=== PATIENT | male | born 1990 | race Caucasian/White ===

== ENCOUNTER 2019-06-13 18:45 | Emergency (ER) | payer MEDICAID ==
[~2019-06-13] VITALS: Ht 175.3 cm; Wt 59.1 kg
[~2019-06-13 18:45] MED LIST: NO HOME MEDS
[2019-06-13 18:47] VITALS: BP 113/68
== END 2019-06-13 19:12 ==
LOC: ER 18:45
DX: Z02.89 Encounter for other administrative examinations (principal); R45.1 Restlessness and agitation; F17.200 Nicotine dependence, unspecified, uncomplicated; V49.88XA Car occupant (driver) (passenger) injured in other specified transport accidents, initial encounter; Y93.89 Activity, other specified; Y92.413 State road as the place of occurrence of the external cause; Y99.9 Unspecified external cause status
CPT/HCPCS: 99283

== ENCOUNTER 2020-01-14 15:45 | Inpatient (IN) | payer MEDICAID ==
[~2020-01-14] VITALS: Ht 175.3 cm; Wt 57.9 kg
[2020-01-14] MEDS ORDERED: ondansetron/PF 4mg/2ml inj IV ONE (16:15)
[2020-01-14] MEDS ORDERED: normal saline 1000ML IV soln IVB ONE ×2 (16:15→17:50)
[2020-01-14] MEDS: morphine 2 MG/ML inj. syringe IV PRN ×2 (16:36→19:39)
--- NOTE | 2020-01-14 16:40 | NUR ---
PT IS RECEIVING 1ST LITER NS BOLUS, PT C/O EPIGASTRIC AND THROAT PAIN, +N/V SINCE TUESDAY AT 0800, NO FEVER/CHILLS, NO RECENT TRAVEL, NO DYSURIA,
--- NOTE | 2020-01-14 16:45 | NUR ---
FLU AND THROAT SWAB SENT TO LAB
[2020-01-14 16:51] LABS: BASOPHILS % (AUTO) 0.1 % (0-1); EOSINOPHILS % (AUTO) 0 % (0-6); HEMATOCRIT 54.3 % (42.0-52.0); LYMPHOCYTES # (AUTO) 1.1 X10'3 (1.1-4.8); LYMPHOCYTES % (AUTO) 3.5 % (21-51); MEAN CORPUSCULAR HEMOGLOBIN 30.8 PG (27.0-31.0); MEAN CORPUSCULAR VOLUME 88.2 FL (78-98); MEAN PLATELET VOLUME 8.3 FL (7.4-10.4); MONOCYTES # (AUTO) 3.4 X10'3 (0-0.9); MONOCYTES % (AUTO) 11.2 % (2-12); NEUTROPHILS # (AUTO) 26.3 X10'3 (1.8-7.7); NEUTROPHILS % (AUTO) 85.2 % (42-75); PLATELET COUNT 411 X10'3 (140-440); RED BLOOD COUNT 6.15 X10'6 (4.70-6.10); RED CELL DISTRIBUTION WIDTH 12.7 % (11.5-14.5)
[2020-01-14 16:55] LABS: WHITE BLOOD COUNT 30.8 X10'3 (4.5-11.0)
[2020-01-14 17:10] LABS: ALANINE AMINOTRANSFERASE 28 U/L (12-78); ALBUMIN 4.9 G/DL (3.4-5.0); ALBUMIN/GLOBULIN RATIO 1.1 (1.1-1.5); ALKALINE PHOSPHATASE 105 IU/L (46-116); ANION GAP 14 (8-16); ASPARTATE AMINO TRANSFERASE 50 U/L (10-37); BILIRUBIN,TOTAL 1.1 MG/DL (0.1-1.0); BLOOD UREA NITROGEN 53 MG/DL (7-18); CALCIUM 10.3 MG/DL (8.5-10.1); CHLORIDE 83 MMOL/L (99-107); CREATININE 1.96 MG/DL (0.60-1.10); GLUCOSE 132 MG/DL (70-104); LIPASE < 50 U/L (73-393); SODIUM 130 MMOL/L (135-145); TOTAL PROTEIN 9.4 G/DL (6.4-8.2); eGFR 41 ML/MIN
--- NOTE | 2020-01-14 17:11 | NUR ---
2ND LITER NS W/O
[2020-01-14 17:12] LABS: POTASSIUM 2.6 MMOL/L (3.5-5.1); TOTAL CELLS COUNTED 100
[2020-01-14 17:13] LABS: PLATELET ESTIMATE NORMAL; STOMATOCYTES 1+
[2020-01-14 17:40] LABS: MAGNESIUM 2.6 MG/DL (1.5-2.4)
[2020-01-14] MEDS ORDERED: penicillin G benzathine 1.2 million unit/2ml syringe IM ONE (17:50)
[2020-01-14] MEDS ORDERED: diphenhydrAMINE 25mg capsule PO PRN (18:10)
[2020-01-14] MEDS ORDERED: acetaminophen 650mg rectal suppository RC PRN (18:10)
[2020-01-14] MEDS ORDERED: potassium CL 10mEq/100ml bag 100 ML IV PRN (18:10)
[2020-01-14] MEDS ORDERED: HYDROcodone/acetaminophen 10/325mg tab PO PRN (18:10)
[2020-01-14] MEDS ORDERED: morphine 2 MG/ML inj. syringe IV PRN ×2 (18:10)
[2020-01-14] MEDS ORDERED: magnesium 4gm in 100ml NS 100 ML IV PRN (18:10)
[2020-01-14] MEDS ORDERED: HYDROcodone/acetaminophen 5mg/325mg tablet PO PRN (18:10)
[2020-01-14] MEDS ORDERED: mag hydrox/Alum hydrox/simeth 30ml oral suspension PO PRN (18:10)
[2020-01-14] MEDS ORDERED: potassium Cl 20 mEq SR tablet PO PRN ×2 (18:10)
[2020-01-14] MEDS ORDERED: magnesium hydroxide 30ml (MOM) UD suspension PO PRN (18:10)
[2020-01-14] MEDS ORDERED: magnesium 2GM in 50ml NS 50 ML IV PRN (18:10)
[2020-01-14] MEDS ORDERED: acetaminophen 325mg tablet PO PRN ×2 (18:10)
[2020-01-14] MEDS ORDERED: magnesium Cl slow-release 64mg tablet PO PRN (18:10)
[2020-01-14] MEDS ORDERED: metoclopramide 5 mg/ml inj IV PRN (18:10)
[2020-01-14 18:26] LABS: ETHANOL < 0.010 GM/DL (0.0-0.010)
[2020-01-14] MEDS: normal saline 1000ml 1,000 ML IV SCH (19:07)
[2020-01-14] MEDS: CefTRIAXone/D5W-Rocephin 1gm 50 ML IV SCH (19:36)
[2020-01-14] MEDS ORDERED: penicillin G potassium inj 3,000,000 UNIT in normal saline 100ml IV soln 100 ML IV SCH (20:00)
[2020-01-14] MEDS: K and/or MAG REPLACEMENT MC SCH (20:00)
[2020-01-14 20:15] VITALS: BP 118/68
[2020-01-14] MEDS: heparin, porcine 5000 units/ml vial SQ SCH (20:55)
[2020-01-14 21:23] LABS: CLARITY,URINE CLEAR (Clear); COLOR,URINE YELLOW (Yellow); GLUCOSE, URINE NEGATIVE (Neg); KETONES,URINE 15 mg/dl (Neg); LEUKOCYTE ESTERASE ,URINE NEGATIVE (Neg); NITRITES, URINE NEGATIVE (Neg); OCCULT BLOOD,URINE TRACE-INTACT (Neg); PROTEIN,URINE 100 mg/dl (Neg); UROBILINOGEN,URINE 0.2 E.U/dL (0.2-1.0)
[2020-01-14 21:29] LABS: UA COLLECTION TYPE CLN CATCH MIDSTREAM
[2020-01-14 21:31] LABS: BACTERIA,URINE NONE SEEN /HPF (Neg); RBC,URINE 0-2 /HPF (0-2); SQUAMOUS EPITHELIAL CELL,UR NONE SEEN /LPF (FEW); WBC,URINE 0-4 /HPF (0-4)
[2020-01-14 21:40] LABS: URINE AMPHETAMINE SCREEN NEGATIVE (Neg); URINE BARBITUATE SCREEN NEGATIVE (Neg); URINE BENZODIAZEPINES SCREEN NEGATIVE (Neg); URINE CANNABINOID SCREEN POSITIVE (Neg); URINE COCAINE SCREEN NEGATIVE (Neg); URINE METHADONE SCREEN NEGATIVE (Neg); URINE OPIATE SCREEN POSITIVE (Neg); URINE PHENCYCLIDINE SCREEN NEGATIVE (Neg)
[2020-01-14 23:28] VITALS: BP 120/70
[2020-01-15] MEDS: potassium CL 10mEq/100ml bag 100 ML IV PRN ×11 (00:03→22:27)
[2020-01-15] MEDS ORDERED: POTASSIUM BICARB 20meq eff tab 20 MEQ TABLET.EFF PO PRN ×2 (00:37→00:38)
[2020-01-15] MEDS: normal saline 1000ml 1,000 ML IV SCH ×2 (02:07→10:07)
[2020-01-15] MEDS: ondansetron/PF 4mg/2ml inj IV PRN ×2 (03:14→18:51)
[2020-01-15 05:30] LABS: BASOPHILS % (AUTO) 0.1 % (0-1); EOSINOPHILS % (AUTO) 0 % (0-6); HEMATOCRIT 40.3 % (42.0-52.0); HEMOGLOBIN 14.2 g/dl (14.0-17.9); LYMPHOCYTES # (AUTO) 1.3 X10'3 (1.1-4.8); LYMPHOCYTES % (AUTO) 6.2 % (21-51); MEAN CORPUSCULAR HEMOGLOBIN 31.7 PG (27.0-31.0); MEAN CORPUSCULAR HGB CONC 35.3 g/dL (33.0-36.5); MEAN CORPUSCULAR VOLUME 89.9 FL (78-98); MONOCYTES # (AUTO) 2.4 X10'3 (0-0.9); MONOCYTES % (AUTO) 11.8 % (2-12); NEUTROPHILS # (AUTO) 16.7 X10'3 (1.8-7.7); NEUTROPHILS % (AUTO) 81.9 % (42-75); PLATELET COUNT 284 X10'3 (140-440); RED BLOOD COUNT 4.48 X10'6 (4.70-6.10); RED CELL DISTRIBUTION WIDTH 12.5 % (11.5-14.5); WHITE BLOOD COUNT 20.3 X10'3 (4.5-11.0)
[2020-01-15 05:56] LABS: ALANINE AMINOTRANSFERASE 25 U/L (12-78); ALBUMIN 3.3 G/DL (3.4-5.0); ALKALINE PHOSPHATASE 68 IU/L (46-116); ANION GAP 6 (8-16); ASPARTATE AMINO TRANSFERASE 45 U/L (10-37); BILIRUBIN,TOTAL 0.7 MG/DL (0.1-1.0); BLOOD UREA NITROGEN 30 MG/DL (7-18); BUN/CREATININE RATIO 29.7 (5.4-32.0); CALCIUM 8.3 MG/DL (8.5-10.1); CHLORIDE 100 MMOL/L (99-107); CREATININE 1.01 MG/DL (0.60-1.10); GLUCOSE 94 MG/DL (70-104); MAGNESIUM 2.2 MG/DL (1.5-2.4); PHOSPHORUS 2.3 MG/DL (2.3-4.5); POTASSIUM 3.2 MMOL/L (3.5-5.1); SODIUM 137 MMOL/L (135-145); TOTAL CARBON DIOXIDE 30.8 MMOL/L (24-32); TOTAL PROTEIN 6.6 G/DL (6.4-8.2); eGFR 88 ML/MIN
--- NOTE | 2020-01-15 06:21 | NUR ---
Problems reprioritized. Patient report given, questions answered & plan of care reviewed with ALISE Thomas.
--- NOTE | 2020-01-15 06:29 | NUR ---
Patient in room [facility]. I have received report from Amee CARRERO and had the opportunity to ask questions and assume patient care.
[2020-01-15 07:15] VITALS: BP 98/64
[2020-01-15] MEDS: heparin, porcine 5000 units/ml vial SQ SCH ×2 (07:24→20:02)
[2020-01-15] MEDS: CefTRIAXone/D5W-Rocephin 1gm 50 ML IV SCH (07:28)
[2020-01-15] MEDS: K and/or MAG REPLACEMENT MC SCH ×2 (08:00→20:00)
[2020-01-15] MEDS ORDERED: FLU VACC QS2019-20 36MOS UP/PF 60 MCG/0.5 ML SYRINGE IMVAC ONE (10:00)
[2020-01-15 12:57] VITALS: BP 103/58
[2020-01-15] MEDS ORDERED: haloperidol lactate 5mg/ml inj IM PRN (13:05)
[2020-01-15] MEDS ORDERED: LORazepam 1 MG tablet PO PRN (13:05)
[2020-01-15] MEDS ORDERED: haloperidol 5mg tablet PO PRN (13:05)
[2020-01-15] MEDS ORDERED: thiamine inj. 100 MG in normal saline 100ml IV soln 100 ML IV ONE (13:30)
[2020-01-15] MEDS: nicotine 14mg patch - 24hr TD SCH (13:34)
[2020-01-15] MEDS: pantoprazole 40 MG vial IV SCH (13:34)
[2020-01-15] MEDS: dextrose 5%-normal saline 1,000 ML IV SCH ×2 (13:35→22:26)
--- NOTE | 2020-01-15 16:36 | NUR ---
Patient sleeping most of shift. Not wanting to eat , mother present, informed this staff that patient drinks constantly at home drinking a 16oz bottle of vodka/day and several beers, half a pack of cigarettes and weed. dr esparza informed. . Thiamine given per protocol. patient placed on ETOH protocol. Will continue to monitor.
--- NOTE | 2020-01-15 16:50 | NUR ---
Initial: Pt admit with strep throat and sepsis. Per MD note pt clinically getting better however with difficulty swallowing even liquids secondary to sore throat, PRN Lidocaine swish and spit was added to med list and pt started on D5NS at 125 mL/hr. Pt receiving routine Thiamine and Folic acid d/t patient's mother reporting pt drinks alcohol daily. Attempted visit with pt at bedside for protein education and food preferences however pt sleeping and did not wake with verbal cues. Written education and RD contact information left a bedside. Pt currently on regular diet documented to have refused breakfast and lunch today. LBM 01/12. Will continue to follow closely and monitor for appropriate nutrition intervention. Recommendations: 1) Continue regular diet 2) Consider diet change to full liquids if easier to swallow with strep throat 3) Monitor need for ONS 4) Continue routine Thiamine and Folic acid d/t EtOH reports 5) Bowel care PRN 6) Wt per rx Addendum: 01/15/20 at [address] Amended: Links added.
--- NOTE | 2020-01-15 17:58 | NUR ---
repeat K was 3.3. will start replacement again per protocol. Report given to Amee CARRERO
[2020-01-15] MEDS: LIDOcaine Viscous 15ml cup MM PRN (18:51)
[2020-01-15] MEDS: lactobacillus rhamnosus 10,000 MMU CELLS/CAPSULE PO SCH (19:42)
[2020-01-15 20:00] VITALS: BP 113/75
[2020-01-15] MEDS: LORazepam 2 mg/ml vial IV PRN (20:02)
[2020-01-16] VITALS: BP 122/78
[2020-01-16] MEDS: potassium CL 10mEq/100ml bag 100 ML IV PRN (01:14)
[2020-01-16] MEDS: ondansetron/PF 4mg/2ml inj IV PRN (02:30)
[2020-01-16] MEDS: LORazepam 2 mg/ml vial IV PRN (02:30)
[2020-01-16 05:28] LABS: BASOPHILS % (AUTO) 0.2 % (0-1); EOSINOPHILS % (AUTO) 0.1 % (0-6); HEMOGLOBIN 13.4 g/dl (14.0-17.9); LYMPHOCYTES # (AUTO) 1.7 X10'3 (1.1-4.8); LYMPHOCYTES % (AUTO) 14.2 % (21-51); MEAN CORPUSCULAR HEMOGLOBIN 31.8 PG (27.0-31.0); MEAN CORPUSCULAR HGB CONC 35.1 g/dL (33.0-36.5); MEAN CORPUSCULAR VOLUME 90.6 FL (78-98); MONOCYTES # (AUTO) 1.5 X10'3 (0-0.9); MONOCYTES % (AUTO) 12.8 % (2-12); NEUTROPHILS # (AUTO) 8.6 X10'3 (1.8-7.7); NEUTROPHILS % (AUTO) 72.7 % (42-75); PLATELET COUNT 240 X10'3 (140-440); RED BLOOD COUNT 4.19 X10'6 (4.70-6.10); RED CELL DISTRIBUTION WIDTH 12.4 % (11.5-14.5); WHITE BLOOD COUNT 11.8 X10'3 (4.5-11.0)
[2020-01-16 05:38] LABS: ALANINE AMINOTRANSFERASE 23 U/L (12-78); ALBUMIN 2.9 G/DL (3.4-5.0); ALBUMIN/GLOBULIN RATIO 0.9 (1.1-1.5); ALKALINE PHOSPHATASE 50 IU/L (46-116); ANION GAP 6 (8-16); ASPARTATE AMINO TRANSFERASE 33 U/L (10-37); BILIRUBIN,TOTAL 0.6 MG/DL (0.1-1.0); BLOOD UREA NITROGEN 15 MG/DL (7-18); BUN/CREATININE RATIO 18.5 (5.4-32.0); CALCIUM 8.2 MG/DL (8.5-10.1); CHLORIDE 106 MMOL/L (99-107); CREATININE 0.81 MG/DL (0.60-1.10); GLUCOSE 119 MG/DL (70-104); PHOSPHORUS 2.1 MG/DL (2.3-4.5); POTASSIUM 3.6 MMOL/L (3.5-5.1); SODIUM 138 MMOL/L (135-145); eGFR > 90 ML/MIN
[2020-01-16] MEDS: dextrose 5%-normal saline 1,000 ML IV SCH ×2 (05:42→13:05)
--- NOTE | 2020-01-16 06:20 | NUR ---
Problems reprioritized. Patient report given, questions answered & plan of care reviewed with ALISE España.
[2020-01-16 07:23] VITALS: BP 103/56
[2020-01-16] MEDS: pantoprazole 40 MG vial IV SCH (07:43)
[2020-01-16] MEDS: CefTRIAXone/D5W-Rocephin 1gm 50 ML IV SCH (07:43)
[2020-01-16] MEDS: heparin, porcine 5000 units/ml vial SQ SCH (07:43)
[2020-01-16] MEDS: nicotine 14mg patch - 24hr TD SCH (07:43)
[2020-01-16] MEDS ORDERED: thiamine 100mg tablet PO SCH (08:00)
[2020-01-16] MEDS: lactobacillus rhamnosus 10,000 MMU CELLS/CAPSULE PO SCH (08:00)
[2020-01-16] MEDS: K and/or MAG REPLACEMENT MC SCH (08:00)
[2020-01-16] MEDS ORDERED: folic acid 1mg tablet PO SCH (08:00)
[2020-01-16] MEDS ORDERED: LACT1CAP26 PO (10:33)
[2020-01-16] MEDS ORDERED: THIA50TA10 PO (10:33)
[2020-01-16] MEDS ORDERED: FOLI0.4T2 PO (10:33)
[2020-01-16] MEDS ORDERED: CEFD300C3 PO (10:33)
[2020-01-16] MEDS ORDERED: LIDO20SO16 MM (10:33)
--- NOTE | 2020-01-16 11:47 | NUR ---
Went in to discharge patient from primary nurse while she is on her lunch break. Patient mother was stating concern for the patient related to him throwing up and being unable to keep anything down. Patient was informed that we can discuss this with the MD and primary nurse and try to figure out the plan.
[2020-01-16] MEDS: LIDOcaine Viscous 15ml cup MM PRN (12:19)
[2020-01-16 12:39] VITALS: BP 112/83
--- NOTE | 2020-01-16 15:19 | NUR ---
Discharge instructions given to patient and he states he understands. IV was removed with canula intact. Pt was safely wheeled down to private vehicle where mom will take him home.
[2020-01-17] MEDS ORDERED: pantoprazole 40mg Tablet.DR PO SCH (08:00)
== END 2020-01-16 15:28 | disposition home or self-care (01) | DRG 113 ==
LOC: ER 15:45 → ED HOLD 18:25 → SUR 3N 20:25
PROVIDERS: ADMIT Family Medicine; ATTEND Family Medicine
DX: J02.0 Streptococcal pharyngitis (principal); N17.9 Acute kidney failure, unspecified; D75.1 Secondary polycythemia; E83.52 Hypercalcemia; E86.0 Dehydration; J02.9 Acute pharyngitis, unspecified; D72.829 Elevated white blood cell count, unspecified; K52.9 Noninfective gastroenteritis and colitis, unspecified; E87.6 Hypokalemia; F17.200 Nicotine dependence, unspecified, uncomplicated; F10.10 Alcohol abuse, uncomplicated; Y90.9 Presence of alcohol in blood, level not specified; Z83.3 Family history of diabetes mellitus; Z71.6 Tobacco abuse counseling
CPT/HCPCS: 36415; 71045; 80053; 80305; 80320; 81001; 82948; 83036; 83605; 83690; 83735; 84100; 84132; 85025; 87040; 87081; 87502; 87503; 87880; 96372; 96374; 99285; C9113; G0378; J0561; J0696; J1644; J2060; J2270; J2405; J3411; J3480; J7030; J7042; Q2037

== ENCOUNTER 2023-07-11 20:44 | Emergency (ER) | payer MEDICAID ==
[~2023-07-11] VITALS: Ht 175.3 cm; Wt 54.4 kg
[~2023-07-11 20:44] MED LIST changes: +LACT1CAP26 PO; +LIDO20SO16 MM; -NO HOME MEDS; +THIA50TA10 PO
[2023-07-11 20:46] VITALS: TEMP 98.4
[2023-07-11 23:22] LABS: HEMATOCRIT 45.9 % (42.0-52.0); HEMOGLOBIN 15.2 g/dl (14.0-17.9); MEAN CORPUSCULAR HEMOGLOBIN 30.9 PG (27.0-31.0); WHITE BLOOD COUNT 11.4 X10'3 (4.5-11.0)
[2023-07-11 23:23] LABS: BASOPHILS % (AUTO) 0.3 % (0-1); EOSINOPHILS # (AUTO) 0.1 X10'3 (0-0.9); EOSINOPHILS % (AUTO) 0.5 % (0-6); LYMPHOCYTES # (AUTO) 2.2 X10'3 (1.1-4.8); LYMPHOCYTES % (AUTO) 19.4 % (21-51); MEAN CORPUSCULAR HGB CONC 33.1 g/dL (33.0-36.5); MEAN CORPUSCULAR VOLUME 93.4 FL (78-98); MEAN PLATELET VOLUME 7.3 FL (7.4-10.4); MONOCYTES % (AUTO) 8.4 % (2-12); NEUTROPHILS # (AUTO) 8.2 X10'3 (1.8-7.7); NEUTROPHILS % (AUTO) 71.4 % (42-75); PLATELET COUNT 327 X10'3 (140-440); RED BLOOD COUNT 4.91 X10'6 (4.70-6.10); RED CELL DISTRIBUTION WIDTH 12.8 % (11.5-14.5)
[2023-07-11] MEDS ORDERED: NO HOME MEDS (23:26)
[2023-07-11 23:31] LABS: ALANINE AMINOTRANSFERASE 23 U/L (12-78); ALBUMIN 3.9 G/DL (3.4-5.0); ALBUMIN/GLOBULIN RATIO 1.3 (1.1-1.5); ALKALINE PHOSPHATASE 85 IU/L (46-116); ANION GAP 5 (8-16); ASPARTATE AMINO TRANSFERASE 17 U/L (10-37); BILIRUBIN,TOTAL 0.2 MG/DL (0.1-1.0); BLOOD UREA NITROGEN 6 MG/DL (7-18); BUN/CREATININE RATIO 6.5 (10.0-20.0); CHLORIDE 104 MMOL/L (99-107); CREATININE 0.93 MG/DL (0.60-1.10); GLUCOSE 102 MG/DL (70-104); POTASSIUM 3.3 MMOL/L (3.5-5.1); SODIUM 140 MMOL/L (135-145); TOTAL CARBON DIOXIDE 31.5 MMOL/L (24-32); TOTAL PROTEIN 6.8 G/DL (6.4-8.2); eCRCL 89 ML/MIN; eGFR > 90 ML/MIN
[2023-07-11] MEDS ORDERED: OLANZapine 5mg rapidly disint. tablet PO ONE (23:35)
[2023-07-11] MEDS ORDERED: potassium Cl 20 mEq SR tablet PO ONE (23:40)
[2023-07-11 23:41] LABS: ETHANOL < 10 MG/DL (<10); THYROID STIMULATING HORMONE 1.47 ulU/ml (0.34-4.50)
--- NOTE | 2023-07-11 23:50 | NUR ---
The patient is a 32 year old male with no mental health history presented to the ER with complaints of AH that started approximately 1.5 weeks ago after he stopped drinking for two days. He stated the voices were threatening to him and telling him he's a drug dealer. He stated the voices sound like people he knows. He reports the voices are worse at night. He denies thoughts to harm himself or others. He currently lives on his father's property. He denies being on probation or parole. He was given Zyprexa Zydis 5mg and educated to medication. Meal given.
[2023-07-11 23:52] LABS: BILIRUBIN,URINE NEGATIVE (Neg); CLARITY,URINE CLEAR (Clear); COLOR,URINE YELLOW (Yellow); GLUCOSE, URINE NEGATIVE (Neg); KETONES,URINE NEGATIVE (Neg); LEUKOCYTE ESTERASE ,URINE NEGATIVE (Neg); NITRITES, URINE NEGATIVE (Neg); OCCULT BLOOD,URINE NEGATIVE (Neg); PROTEIN,URINE NEGATIVE (Neg); UROBILINOGEN,URINE 0.2 E.U/dL (0.2-1.0)
--- NOTE | 2023-07-11 23:54 | NUR ---
PARENTS MILLER AND JON
[2023-07-11 23:57] LABS: UA COLLECTION TYPE VOIDED
[2023-07-12 00:03] LABS: URINE AMPHETAMINE SCREEN POSITIVE (Neg); URINE BARBITUATE SCREEN NEGATIVE (Neg); URINE BENZODIAZEPINES SCREEN NEGATIVE (Neg); URINE CANNABINOID SCREEN POSITIVE (Neg); URINE COCAINE SCREEN NEGATIVE (Neg); URINE METHADONE SCREEN NEGATIVE (Neg); URINE OPIATE SCREEN NEGATIVE (Neg); URINE PHENCYCLIDINE SCREEN NEGATIVE (Neg)
--- NOTE | 2023-07-12 00:07 | NUR ---
PACKET SENT TO [facility]
--- NOTE | 2023-07-12 01:19 | NUR ---
The patient appears to be sleeping
--- NOTE | 2023-07-12 02:57 | NUR ---
The patient appears to be sleeping
--- NOTE | 2023-07-12 05:39 | NUR ---
The patient appears to be sleeping
[2023-07-12 06:03] VITALS: BP 113/80; PULSE 76; O2SAT 100
--- NOTE | 2023-07-12 07:19 | NUR ---
Patient laying on his right side appears to be sleeping. Nonlabored respirations. No distress observed. Continue to monitor.
[2023-07-12 08:25] VITALS: RESP 16
--- NOTE | 2023-07-12 08:55 | NUR ---
Patient eating. No distress observed. Continue to monitor.
--- NOTE | 2023-07-12 09:20 | NUR ---
Jarod DAIGLE, evaluating patient. No distress observed. Continue to monitor.
--- NOTE | 2023-07-12 09:32 | NUR ---
Met with patient in regards to substance/alcohol use and to see if patient is interested in resources for treatment options. Patient is interested in outpatient and inpatient services. I talked to patient about getting a sponsor. I discussed with patient about starting Naltrexone for cravings. I gave patient a list of resources, [facility] card and my card to call me with any questions.
--- NOTE | 2023-07-12 10:11 | NUR ---
[facility]. Patient using the phone at the nurse's station and Jarod advised patient that he is able to speak to his mom in his room. Patient replied "Well obviously you want to listen so I'll speak right here." Jarod replied "I don't need to listen and I'll speak to your family when you are done." Patient stated "I don't need to speak to my family if you are going to." Patient hands the tech the phone and went to go sit down in his bed. Patient is upset that Jarod wants patient to admit to family that he is using meth. Continue to monitor.
--- NOTE | 2023-07-12 12:20 | NUR ---
Patient's mom at bedside chatting with patient. Patient is eating lunch. No distress observed. Continue to monitor.
== END 2023-07-12 12:54 | disposition home or self-care (01) ==
LOC: ER 20:44
DX: F15.10 Other stimulant abuse, uncomplicated (principal); Z20.822 Contact with and (suspected) exposure to COVID-19; F10.129 Alcohol abuse with intoxication, unspecified; Y90.9 Presence of alcohol in blood, level not specified
CPT/HCPCS: 36415; 80053; 80305; 80320; 81003; 84443; 85025; 87811; 99285

== ENCOUNTER 2024-02-25 19:24 | Emergency (ER) | payer MEDICAID ==
[~2024-02-25] VITALS: Ht 175.3 cm; Wt 63.6 kg
[~2024-02-25 19:24] MED LIST changes: -LACT1CAP26 PO; -LIDO20SO16 MM; +NO HOME MEDS; -THIA50TA10 PO
[2024-02-25 19:35] VITALS: TEMP 98.2
[2024-02-25 19:58] LABS: BASOPHILS # (AUTO) 0.1 X10'3 (0-0.2); BASOPHILS % (AUTO) 0.6 % (0-1); EOSINOPHILS % (AUTO) 0.2 % (0-6); HEMATOCRIT 41.6 % (42.0-52.0); HEMOGLOBIN 14.5 g/dl (14.0-17.9); LYMPHOCYTES # (AUTO) 2.6 X10'3 (1.1-4.8); LYMPHOCYTES % (AUTO) 24.9 % (21-51); MEAN CORPUSCULAR HEMOGLOBIN 30.7 PG (27.0-31.0); MEAN CORPUSCULAR HGB CONC 34.8 g/dL (33.0-36.5); MEAN CORPUSCULAR VOLUME 88.1 FL (78-98); MEAN PLATELET VOLUME 7.3 FL (7.4-10.4); MONOCYTES # (AUTO) 1.1 X10'3 (0-0.9); MONOCYTES % (AUTO) 10.8 % (2-12); NEUTROPHILS # (AUTO) 6.7 X10'3 (1.8-7.7); NEUTROPHILS % (AUTO) 63.5 % (42-75); PLATELET COUNT 413 X10'3 (140-440); RED BLOOD COUNT 4.72 X10'6 (4.70-6.10); RED CELL DISTRIBUTION WIDTH 13.2 % (11.5-14.5); WHITE BLOOD COUNT 10.6 X10'3 (4.5-11.0)
[2024-02-25] MEDS: normal saline 1000ML IV soln IVB ONE (20:09)
[2024-02-25 20:15] LABS: ALANINE AMINOTRANSFERASE 25 U/L (12-78); ALBUMIN 4.3 G/DL (3.4-5.0); ALBUMIN/GLOBULIN RATIO 1.3 (1.1-1.5); ALKALINE PHOSPHATASE 91 IU/L (46-116); ANION GAP 16 (8-16); ASPARTATE AMINO TRANSFERASE 21 U/L (10-37); BILIRUBIN,TOTAL 0.5 MG/DL (0.1-1.0); BLOOD UREA NITROGEN 11 MG/DL (7-18); BUN/CREATININE RATIO 10.9 (10.0-20.0); CALCIUM 9.7 MG/DL (8.5-10.1); CHLORIDE 101 MMOL/L (99-107); CREATININE 1.01 MG/DL (0.60-1.10); GLUCOSE 96 MG/DL (70-104); POTASSIUM 3.3 MMOL/L (3.5-5.1); SODIUM 140 MMOL/L (135-145); TOTAL CARBON DIOXIDE 22.6 MMOL/L (24-32); TOTAL PROTEIN 7.6 G/DL (6.4-8.2); eCRCL 95 ML/MIN; eGFR 86 ML/MIN
[2024-02-25 20:24] LABS: THYROID STIMULATING HORMONE 1.53 ulU/ml (0.34-4.50)
[2024-02-25 20:42] LABS: URINE AMPHETAMINE SCREEN POSITIVE (Neg); URINE BARBITUATE SCREEN NEGATIVE (Neg); URINE BENZODIAZEPINES SCREEN NEGATIVE (Neg); URINE CANNABINOID SCREEN POSITIVE (Neg); URINE COCAINE SCREEN NEGATIVE (Neg); URINE METHADONE SCREEN NEGATIVE (Neg); URINE OPIATE SCREEN NEGATIVE (Neg); URINE PHENCYCLIDINE SCREEN NEGATIVE (Neg)
[2024-02-25 20:44] LABS: SALICYLATE 0.9 MG/DL (4.0-20.0)
[2024-02-25 20:45] LABS: ACETAMINOPHEN < 2.0 UG/ML (10-30); ETHANOL < 10 MG/DL (<10)
[2024-02-25] MEDS: diphenhydrAMINE 50 mg/ml inj IM ONE (21:21)
[2024-02-25] MEDS: OLANZapine **IM** 10 mg inj. IM ONE (21:22)
[2024-02-25 21:27] LABS: BILIRUBIN,URINE SMALL (Neg); CLARITY,URINE CLEAR (Clear); COLOR,URINE YELLOW (Yellow); GLUCOSE, URINE NEGATIVE (Neg); KETONES,URINE 15 mg/dl (Neg); LEUKOCYTE ESTERASE ,URINE NEGATIVE (Neg); NITRITES, URINE NEGATIVE (Neg); OCCULT BLOOD,URINE NEGATIVE (Neg); PROTEIN,URINE NEGATIVE (Neg); UROBILINOGEN,URINE 0.2 E.U/dL (0.2-1.0)
[2024-02-25 21:34] LABS: UA COLLECTION TYPE URINAL
[2024-02-26 05:00] VITALS: BP 96/60; PULSE 66; O2SAT 99
[2024-02-26 07:45] VITALS: RESP 16
== END 2024-02-26 14:15 | disposition home or self-care (01) ==
LOC: ER 19:25
DX: F23 Brief psychotic disorder (principal); F15.10 Other stimulant abuse, uncomplicated; F17.200 Nicotine dependence, unspecified, uncomplicated; Z20.822 Contact with and (suspected) exposure to COVID-19; Z72.89 Other problems related to lifestyle
CPT/HCPCS: 36415; 80053; 80305; 80320; 80329; 81003; 84443; 84484; 85025; 87811; 93005; 96372; 99285; J1200; J3490; J7030